=== PATIENT | female | born 1975 | race Caucasian/White ===

== ENCOUNTER 2021-01-31 00:58 | Day surgery (SDC) | payer OTHER, SELFPAY ==
[2021-01-28 09:46] VITALS: BMI 34.1
--- NOTE | 2021-01-30 14:23 | WPDANESEPPF ---
Anes - Initial Pre Proc Eval Procedure: Operation Date: 01/31/21 10:30 Proposed Procedures p Arthroscopic Rotator Cuff Repair Right Shoulder - Bartolome Simmons MD Date/Time: 01/30/21 14:23 Surgeon: Bartolome Simmons MD Pre Op Diagnosis: Complete rotator cuff tear Patient Data Age: 45 Gender: F Height: 1.65 m Weight: 93 kg Allergies Allergy/AdvReac Type Severity Reaction Status Date / Time caffeine Allergy Intermediate TACHYCARDIA; Verified 01/28/21 09:45 SOB dog dander Allergy Mild Dyspnea / Verified 01/28/21 09:45 SOB hydrocodone Allergy Mild Dyspnea / Verified 01/28/21 09:45 SOB pollen extracts Allergy Mild Dyspnea / Verified 01/28/21 09:45 SOB scopolamine Allergy Mild HIVES/RASH Verified 01/28/21 09:45 gluten AdvReac Mild Unknown Verified 01/28/21 09:45 Home Medications Medication Instructions Recorded Confirmed Type albuterol sulfate 90 mcg/actuation 1 puff INHALATION Q4H PRN 12/17/20 01/28/21 History aerosol inhaler alprazolam 0.5 mg tablet 0.5 mg PO QHS PRN 12/17/20 01/28/21 History azelastine 137 mcg (0.1 %) nasal 1 spray INTRANASAL Q12H 12/17/20 01/28/21 History spray aerosol buspirone 5 mg tablet 5 mg PO BID 12/17/20 01/28/21 History cyclobenzaprine 10 mg tablet 10 mg PO TID 12/17/20 01/28/21 History diclofenac potassium 50 mg tablet 50 mg PO TID PRN 12/17/20 01/28/21 History diphenhydramine 25 1 tablet PO QHS PRN 12/17/20 01/28/21 History mg-acetaminophen 500 mg tablet levocetirizine 5 mg tablet 5 mg PO DAILY 12/17/20 01/28/21 History melatonin 10 mg capsule 10 mg PO QHS 12/17/20 01/28/21 History montelukast 10 mg tablet 10 mg PO DAILY 12/17/20 01/28/21 History omeprazole 40 mg capsule,delayed 40 mg PO DAILY 12/17/20 01/28/21 History release ondansetron 4 mg disintegrating 4 mg PO Q8H 12/17/20 01/28/21 History tablet sumatriptan succinate 50 mg tablet See Rx Instructions PO .COMPLEX 12/17/20 01/28/21 History topiramate 100 mg tablet 100 mg PO BID 12/17/20 01/28/21 History valacyclovir 1 gram tablet 1,000 mg PO DAILY 12/17/20 01/28/21 History Patient hx anesthesia problems: post op nausea/vomiting Family hx anesthesia problems: none PMFSH Past Medical History Medical History (Updated 01/30/21 @ 14:25 by Ross Patel DO) Asthma Deafness in right ear Eosinophilic esophagitis Panic attack PONV (postoperative nausea and vomiting) Surgical History Surgical History H/O lymph node excision (~2011) rt. groin History of carpal tunnel surgery of right wrist (~2017) rt elbow debridement History of ear surgery (~1992) rt ear Reconstruction History of removal of cyst (~1995) rt hand History of tonsillectomy (~1987) Family History Family History Unknown CHF (congestive heart failure) Hepatic steatosis Hypertension Breast cancer Cerebrovascular accident Other Diabetes mellitus Family history of arthritis Family history of cardiovascular disease Social History Social History Smoking status: Never smoker Second hand tobacco smoke exposure: No Alcohol intake: never Substance use: current Substance use type: does not use and marijuana Last use: 01/25/21 Living arrangements: with family Gender identity (if verbalized by the patient): Female Sexual Orientation (if Verbalized by the Patient): Straight or Heterosexual Spiritual care concerns: No Anes - Eval Final PreProcedure Day of Procedure 01/30/21 14:23 Patient weight: obese Heart: regular rate and rhythm Lungs: clear to auscultation and normal air movement Airway: Mallampati scale class II Neurological: alert and oriented Last oral intake: >/= 8 hours ASA classification: III Emergent: no Anesthetic plan: proceed Anesthesia type and monitoring: general ETT and standard monitoring Inf
[2021-01-31] VITALS (9 sets, daily range): BP systolic 113–134; BP diastolic 60–94; PULSE 66–85; RESP 16–21; TEMP 36.1–36.2; O2SAT 97–100
--- NOTE | 2021-01-31 08:33 | WPDANESPNB ---
Anes - Peripheral Nerve Block Date/Time: 01/31/21 08:33 I have discussed with the patient/family/POA the placement of a peripheral nerve block for post-operative pain management, including associated risks, benefits, complications, and side effects. Alternative methods of post-operative analgesia were detailed. Questions were solicited and answers provided to the satisfaction of the patient/family/POA. Time-Out: A pre-procedural Time-Out was completed immediately before starting the procedure and confirmed: Patient Identification, Site, Procedure, Patient Position and the Availability of Requisite Equipment. Clinical Indications: Acute post-operative pain management requested by the operative surgeon. Nerve Block Insertion Note Anes-nerve block: interscalene right Patient position: supine Skin prep: chlorhexidine Needle: 22 gauge, stimulating, insulated echogenic needle. Needle length: 50 mm Technique: ultrasound Injectate: bupivacaine 0.5% with epi 5 mcg/ml (30cc- no epi) Observations: tolerated well Complications: none Procedure start time:: 1018 Procedure end time:: 1021
[2021-01-31] MEDS: ACETAMINOPHEN 500 MG TABLET 1000 MG PO (09:02)
[2021-01-31] MEDS: LACTATED RINGERS 1,000 ML 30 ML IV CONT ×2 (09:19→13:16)
[2021-01-31] MEDS: KETOROLAC 15 MG/ML VIAL (*BKC) IV PUSH ×2 (09:20→15:12)
[2021-01-31] MEDS: FAMOTIDINE 20 MG/2 ML VIAL IV PUSH (09:34)
--- NOTE | 2021-01-31 09:58 | WPDHPUPDATE1 ---
History and Physical Update Update Date/Time: 01/31/21 09:58 History and Physical has been reviewed, including an updated exam of the patient. There are NO changes in the patient's condition. Risks, benefits, and alternatives have been discussed and questions answered. Patient agrees to proceed with procedure.
[2021-01-31] MEDS: ceFAZolin 2 GM/D5W 50 ML 2 GM/50 ML BAG IVPB (10:32)
--- NOTE | 2021-01-31 14:32 | P.OP_ITS ---
Procedure Note - Detailed Date of Procedure 01/31/21 Pre-op Diagnosis Complete rotator cuff tear, right shoulder Post-op Diagnosis other (1. Right rotator cuff tear 2. Subacromial impingement) Procedure Performed 1. Arthroscopic rotator cuff repair 2. Arthroscopic subacromial decompression Surgeon Bartolome Simmons MD Emergency Medicine Nurse Practitioner Katherine Garza PA-C Anesthesia general and regional ( interscalene block) Findings Small complete bursal side tear and mid grade articular sided tear. Description of Procedure Physician assistant store director, Katherine Garza PA-C, required for surgery; including patient positioning, draping, arthroscopic camera operation, maintaining instrument position, suture retrieval, wound closure, and dressing and sling placement. Preoperative antibiotics were given. An interscalene block was administered in the preoperative area. The patient was bought brought to the operating room. A general anesthetic was administered. The patient was carefully positioned in the lateral decubitus position. The head and neck were carefully positioned. The non operative extremity was also carefully positioned. The shoulder was prepped and draped in the usual sterile fashion. Examination was performed. Standard posterior and anterior arthroscopic portals were established. Inflow achieved with the arthroscopic pump using saline and epinephrine. The glenohumeral joint was carefully inspected. Articular cartilage was normal. The supraspinatus showed mid to high grade articular side tearing. There was a small rent completing the tear more posteriorly at the defect. There was delamination of the articular flap of tissue. The tissue itself was of excellent quality. The subscapularis was normal. There was a Modena complex. The biceps and labrum were otherwise normal. The posterior cuff and axillary recess were normal. Attention was turned to the subacromial space. A complete bursectomy was performed. A modest acromioplasty was performed. The tear configuration was carefully assessed. It was elected to perform an in situ repair. Due to the completed small defect it was amenable to placing a bone tunnel using the ArthroTunneler device. The location of the tunnel was confirmed by viewing both the articular side and bursal side. A 3 spinal needles were used to momin the cuff. Again the articular view was used to confirm the appropriate placement of the spinal needle through the articular tendon. Subtle adjustments were made and a nice spread configuration was confirmed. Suture shuttles were passed through the spinal needles and out the anterior portal. Sequentially the sutures from the bone tunnel were shuttled back out through the tendon. The sutures were tied arthroscopically. Final viewing of the articular side confirmed that the repair was anatomic. The arthroscopic instruments were removed. The wounds were closed with 3-0 Monocryl subcuticular suture and steri strips. There were no complications. A sling was applied and the patient brought to the recovery room. Estimated Blood Loss 10 Urine Output 300 Pathology none sent Complications No immediate complications Condition stable Disposition PACU
--- NOTE | 2021-01-31 15:20 | SUR.PHASEII ---
DR. LOBATO HERE TO SEE PT.
--- NOTE | 2021-01-31 15:20 | SUR.PHASEII ---
DR. LOBATO'S OFFICE CALLED PER PATIENT REQUEST RE: ICE MACHINE. OFFICE STATED THEY WILL CALL THE REP AND CALL US BACK.
--- NOTE | 2021-01-31 15:56 | SUR.PHASEII ---
ICE MACHINE REP REACHED PT'S AND COORDINATED A MEETING TO GET IT.
== END 2021-01-31 15:56 | disposition home or self-care (01) ==
PROVIDERS: PCP Family Medicine; Visit Provider Orthopaedic Surgery
PROC: (CPT 29805; principal; 2021-01-31 10:30)
DX: M75.121 Complete rotator cuff tear or rupture of right shoulder, not specified as traumatic (principal); M75.41 Impingement syndrome of right shoulder; G89.18 Other acute postprocedural pain; J45.909 Unspecified asthma, uncomplicated; Z79.51 Long term (current) use of inhaled steroids; F41.0 Panic disorder [episodic paroxysmal anxiety]; E66.9 Obesity, unspecified; Z68.34 Body mass index [BMI] 34.0-34.9, adult
CPT/HCPCS: 64415; 29827; 29826; A4565; A9270; J0690; J1100; J1200; J1885; J2405; J2704; J3010; J7120

== ENCOUNTER 2021-07-03 08:45 | Outpatient (CLI) | payer OTHER, SELFPAY ==
--- NOTE | ~2021-07-03 | US_ITS ---
EXAMINATION: US pelvic complete w TV DATE: 07/03/2021 10:06 INDICATION: Uterine fibroid Comparison:No prior studies for comparison. TECHNIQUE: Multiple endovaginal sonographic images of the pelvis performed. FINDINGS: The uterus measures 8 x 4.3 x 4.5 cm. There is a fibroid measuring 1.8 x 1.7 x 1.2 cm. The endometrial complex measures 4 mm. The right ovary measures 2.5 x 1.5 x 1.7 cm and the left ovary measures 3.8 x 2.1 x 1.7 cm. There ar e small follicles in each ovary. Normal doppler signal in both ovaries. There is no free fluid in the pelvis. There are no abnormal masses seen on either side. IMPRESSION: 1. Uterine fibroid measuring 1.8 cm maximum dimension. Reviewed, dictated and finalized at location A. [employer]
== END 2021-07-03 08:46 | disposition home or self-care (01) ==
LOC: ANHIMG 08:47
PROVIDERS: Visit Provider Obstetrics & Gynecology Gynecology
DX: D25.9 Leiomyoma of uterus, unspecified (principal); M54.9 Dorsalgia, unspecified; M54.2 Cervicalgia
CPT/HCPCS: 76830; 76856

== ENCOUNTER 2023-05-21 01:11 | Day surgery (SDC) | payer OTHER, SELFPAY ==
[2023-05-17 15:41] VITALS: BMI 32.3
--- NOTE | 2023-05-17 15:49 | PC.NURSE ---
Report to the Outpatient Waiting Room, entrance under the green pavilion located off [facility], at time 9:30 on date 05/21/23. Planned Procedure Time: 11:30. Time changes happen often and if your time is changed the preop area will call you the afternoon before. - You and your visitor will be asked to self-screen and do not enter if you have any COVID symptoms. - A mask is optional within the hospital at this time. Patients may have clear liquids (water, carbonated beverages, clear teas, apple juice) until 3 hours prior to surgery (8:30) with a maximum of 20 ounces. - No food from midnight until time of surgery Take the following medications with a SIP of water the morning of surgery: INHALER IF NEEDED, ALPRAZOLAM, BUSPIRONE, DULOXETINE, TOPIRAMATE, VALACYCLOVIR IF NEEDED DO NOT STOP ANY OF YOUR OTHER PRESCRIPTION MEDICATIONS PRIOR TO SURGERY ?EXCEPT THE FOLLOWING Medications to discontinue per physician: VITAMINS/SUPPLEMENTS Date to take last dose: 05/17/23 Please no make-up, nail filipino, hairspray, perfume, deodorant, or body powder the day of surgery. No jewelry (including any body piercings) or valuables the day of surgery, leave them at home. Please take a shower or bath the night before, or the morning of, surgery with an antibacterial soap. Wear comfortable, loose fitting clothing. - Jewelry must be removed prior to entering the operating room. Rings and piercings that are not removed may be cut off. - The hospital will not accept responsibility for valuables. - Please leave all valuables, including medications, at home the day of surgery. If you are going home after surgery, a licensed electric train driver must drive you home. - NO public transportation without another adult if you receive anesthesia. - We recommend that an adult stay with you for 24 hours following discharge. - We also recommend that you do not drive, make important decision, drink alcoholic beverages, or take any drugs that were not prescribed by your health care provider for at least 24 hours after your discharge time. Follow any additional instructions given to you from your surgeon. If you or anyone in your household have experienced Covid symptoms in the past week, please notify your surgeon or the nurse liaison at the phone number below for possible testing. Telephone instructions given to PT - [facility] and asked if any additional questions and then verbalized understanding. Patient advised to call surgeon office or pre surgery nurse liaison [phone] if any additional questions.
--- NOTE | 2023-05-18 16:17 | PM.IMHP ---
H&P: HPI History of Present Illness Date/Time: 05/18/23 16:17 Chief Complaint: Pelvic pain/dyspareunia/enlarged uterus/uterine prolapse Narrative: Self [age]-year-old 2 para 2 admitted for robotic hysterectomy and bilateral salpingectomy secondary to pelvic pain and discomfort. She has enlarged uterus and a second-degree prolapse. The uterus was floppy unchanged such during her ultrasound. She has severe pain dyspareunia and would like to have that taken care of. She is under feet and refused hormonal disc manipulation. Risks and benefits of this procedure reviewed including but not exclusive of , aspiration 1, bleeding she had, transfusion, perforation injury to bowel, bladder, ureters, or other internal organs with the need for open laparotomy. She received the ACOG handout entitled hysterectomy as well as the de Cj handout. She had all questions answered and asked to proceed PMFSH Past Medical History Medical History Asthma Deafness in right ear Eosinophilic esophagitis Panic attack PONV (postoperative nausea and vomiting) Surgical History Surgical History H/O lymph node excision (~2011) rt. groin History of carpal tunnel surgery of right wrist (~2017) rt elbow debridement History of ear surgery (~1992) rt ear Reconstruction History of removal of cyst (~1995) rt hand History of repair of right rotator cuff (~01/31/21) History of tonsillectomy (~1987) Family History Family History Unknown CHF (congestive heart failure) Hepatic steatosis Hypertension Breast cancer Cerebrovascular accident Other Diabetes mellitus Family history of arthritis Family history of cardiovascular disease Social History Social History Smoking status: Current every day smoker Tobacco type: cigarettes and e-cigarettes/vaping Second hand tobacco smoke exposure: No Additional smoking assessment comments: QUIT CIGARETTES 2001 (SOCIAL SMOKER ONLY), NOW VAPING CBD Alcohol intake: current Alcohol use details: 2/MONTH Substance use: current Substance use type: does not use and marijuana Other substance usage details: CBD Last use: 01/25/21 Living arrangements: with family Gender identity (if verbalized by the patient): Female Sexual Orientation (if Verbalized by the Patient): Straight or Heterosexual Spiritual care concerns: No Meds Home Medications and Allergies Home Medications Medication Instructions Recorded Confirmed Type albuterol sulfate 90 mcg/actuation 1 puff inhalation Q4H PRN SOB 12/17/20 05/17/23 History aerosol inhaler (ProAir HFA) alprazolam 0.5 mg tablet 0.5 mg PO QHS PRN Anxiety 12/17/20 05/17/23 History buspirone 5 mg tablet 5 mg PO BID 12/17/20 05/17/23 History diphenhydramine 25 1 tablet PO QHS PRN Pain 12/17/20 05/17/23 History mg-acetaminophen 500 mg tablet (Tylenol PM Extra Strength) levocetirizine 5 mg tablet 5 mg PO DAILY 12/17/20 05/17/23 History (Allergy Relief (levocetirizine)) melatonin 10 mg capsule 10 mg PO QHS 12/17/20 05/17/23 History montelukast 10 mg tablet 10 mg PO DAILY 12/17/20 05/17/23 History omeprazole 40 mg capsule,delayed 40 mg PO DAILY 12/17/20 05/17/23 History release ondansetron 4 mg disintegrating 4 mg PO Q8H 12/17/20 05/17/23 History tablet sumatriptan succinate 50 mg tablet See Rx Instructions PO .COMPLEX 12/17/20 05/17/23 History topiramate 100 mg tablet 100 mg PO BID 12/17/20 05/17/23 History valacyclovir 1 gram tablet 1,000 mg PO DAILY PRN Cold Sores 12/17/20 05/17/23 History celecoxib 200 mg capsule (Celebrex) 200 mg PO BID 05/17/23 05/17/23 History duloxetine 60 mg capsule,delayed 60 mg PO DAILY 05/17/23 05/17/23 History release lisinopril 10 mg tablet 10 mg PO BID 05/17/23
[2023-05-21] VITALS (9 sets, daily range): BP systolic 113–142; BP diastolic 67–80; PULSE 67–82; RESP 12–18; TEMP 36.1–36.6; O2SAT 95–100
--- NOTE | 2023-05-21 06:46 | WPDHPUPDATE1 ---
History and Physical Update Update Date/Time: 05/21/23 06:46 History and Physical has been reviewed, including an updated exam of the patient. There are NO changes in the patient's condition. Risks, benefits, and alternatives have been discussed and questions answered. Patient agrees to proceed with procedure.
[2023-05-21] MEDS: LACTATED RINGERS 1,000 ML 30 ML IV CONT ×2 (09:55→12:40)
[2023-05-21] MEDS: ACETAMINOPHEN 500 MG TABLET 1000 MG PO (10:00)
[2023-05-21] MEDS: KETOROLAC 15 MG/ML VIAL (*BKC) IV PUSH (10:00)
--- NOTE | 2023-05-21 10:24 | WPDANESEPPF ---
Anes - Initial Pre Proc Eval Procedure: Operation Date: 05/21/23 11:30 Proposed Procedures p Robotic Assisted Total Vaginal Hysterectomy with Bilateral Salpingectomy - Grey Florez MD Date/Time: 05/21/23 10:24 Surgeon: Grey Florez MD Pre Op Diagnosis: Pelvic Pain, Enlarged Uterus, Uterine Prolapse Patient Data Age: 47 Gender: F Height: 1.68 m Weight: 90.72 kg Allergies Allergy/AdvReac Type Severity Reaction Status Date / Time caffeine Allergy Intermediate SOB, nausea Verified 05/17/23 15:38 dog dander Allergy Mild Rash Verified 05/17/23 15:38 hydrocodone Allergy Mild Rash Verified 05/17/23 15:38 pollen extracts Allergy Mild Sneezing Verified 05/17/23 15:38 scopolamine Allergy Mild HIVES/RASH Verified 05/17/23 15:38 latex Allergy Swelling Verified 05/17/23 15:38 gluten AdvReac Mild Gastrointestinal Verified 05/17/23 15:38 Upset Home Medications Medication Instructions Recorded Confirmed Type albuterol sulfate 90 mcg/actuation 1 puff inhalation Q4H PRN SOB 12/17/20 05/17/23 History aerosol inhaler (ProAir HFA) alprazolam 0.5 mg tablet 0.5 mg PO QHS PRN Anxiety 12/17/20 05/17/23 History buspirone 5 mg tablet 5 mg PO BID 12/17/20 05/17/23 History diphenhydramine 25 1 tablet PO QHS PRN Pain 12/17/20 05/17/23 History mg-acetaminophen 500 mg tablet (Tylenol PM Extra Strength) levocetirizine 5 mg tablet 5 mg PO DAILY 12/17/20 05/17/23 History (Allergy Relief (levocetirizine)) melatonin 10 mg capsule 10 mg PO QHS 12/17/20 05/17/23 History montelukast 10 mg tablet 10 mg PO DAILY 12/17/20 05/17/23 History omeprazole 40 mg capsule,delayed 40 mg PO DAILY 12/17/20 05/17/23 History release ondansetron 4 mg disintegrating 4 mg PO Q8H 12/17/20 05/17/23 History tablet sumatriptan succinate 50 mg tablet See Rx Instructions PO .COMPLEX 12/17/20 05/17/23 History topiramate 100 mg tablet 100 mg PO BID 12/17/20 05/17/23 History valacyclovir 1 gram tablet 1,000 mg PO DAILY PRN Cold Sores 12/17/20 05/17/23 History celecoxib 200 mg capsule (Celebrex) 200 mg PO BID 05/17/23 05/17/23 History duloxetine 60 mg capsule,delayed 60 mg PO DAILY 05/17/23 05/17/23 History release lisinopril 10 mg tablet 10 mg PO BID 05/17/23 05/17/23 History oxycodone-acetaminophen 5 mg-325 1 tablet PO Q4H PRN pain #30 tabs 05/21/23 Rx mg tablet (Endocet) Patient hx anesthesia problems: post op nausea/vomiting Family hx anesthesia problems: none Results Review: All pre-operative results and documents have been reviewed as part of the pre-operative evaluation. [facility] Past Medical History Medical History Asthma Deafness in right ear Eosinophilic esophagitis Panic attack PONV (postoperative nausea and vomiting) Surgical History Surgical History H/O lymph node excision (~2011) rt. groin History of carpal tunnel surgery of right wrist (~2017) rt elbow debridement History of ear surgery (~1992) rt ear Reconstruction History of removal of cyst (~1995) rt hand History of repair of right rotator cuff (~01/31/21) History of tonsillectomy (~1987) Family History Family History Unknown CHF (congestive heart failure) Hepatic steatosis Hypertension Breast cancer Cerebrovascular accident Other Diabetes mellitus Family history of arthritis Family history of cardiovascular disease Social History Social History Smoking status: Current every day smoker Tobacco type: cigarettes and e-cigarettes/vaping Second hand tobacco smoke exposure: No Additional smoking assessment comments: QUIT CIGARETTES 2001 (SOCIAL SMOKER ONLY), NOW VAPING CBD Alcohol intake: current Alcohol use details: 2/MONTH Substance use: current Substance use type: does not use and m
[2023-05-21 10:29] LABS: Basophils Percent Auto 0.2 % (0.2-1.2); Eosinophils Absolute Auto 0.1 K/mm3 (0-0.3); Eosinophils Percent Auto 0.9 % (0-4.4); Hematocrit 37.4 % (37.0-47.0); Hemoglobin 11.5 g/dL (12.0-15.0); Immature Granulocyte Absolute 0.03 K/mm3 (0.00-0.031); Immature Granulocyte Percent A 0.3 % (0-0.5); Lymphocytes Absolute Auto 2.02 K/mm3 (0.9-3.2); Lymphocytes Percent Auto 22.6 % (18.3-44.2); Mean Corpuscular HGB Conc 30.7 g/dl (32-36); Mean Corpuscular Hemoglobin 24.8 pg (26-34); Mean Corpuscular Volume 80.6 fl (80-100); Monocytes Absolute Auto 0.7 K/mm3 (0.1-0.6); Monocytes Percent Auto 7.3 % (2.6-8.5); Neutrophils Absolute Auto 6.1 K/mm3 (1.3-6.7); Neutrophils Percent Auto 68.7 % (45.5-73.1); Platelet Count Result 326 k/mm3 (150-375); Red Blood Count 4.64 M/mm3 (4.2-5.4); Red Cell Distribution Width 15.8 % (11.5-14.5); White Blood Count 8.9 K/mm3 (4.5-10.0)
[2023-05-21] MEDS: MIDAZOLAM HCL (*CRX) 2 MG/2 ML VIAL IV PUSH (10:30)
[2023-05-21] MEDS: ceFAZolin 2 GM/D5W 50 ML 2 GM/50 ML BAG IVPB (11:09)
--- NOTE | 2023-05-21 12:21 | P.OP_ITS ---
Procedure Note - Detailed Date of Procedure 05/21/23 Pre-op Diagnosis Pelvic Pain, Enlarged Uterus, Uterine Prolapse Post-op Diagnosis Same Procedure Performed Robotic total vaginal hysterectomy and bilateral salpingectomy Surgeon Grey Florez MD Anesthesia General Indications 47-year-old female with severe pelvic pain and uterine prolapse Findings enlarged uterus 12 pelvic pain Description of Procedure patient was prepped draped in normal sterile fashion placed in dorsal lithotomy position. Under excellent general endotracheal anesthesia weighted speculum placed in posterior fornix vagina. Anterior lip of the cervix grasped with single-tooth tenaculum. Uterus sounded to 10cm. Serial dilatation with fragmented dilators performed followed by passage of the 10. YEHUDA and the 3. 0.5 cold cup. Next the 16 Telugu catheter was placed in the bladder and drained clear urine. The weighted speculum was removed and the gloves were changed. A supraumbilical incision made in the Veress needle passed in the abdomen. Abdomen filled with CO2 gas [id number]. The 8mm trocar advanced in the abdomen. Downside visualized no injury seen. . Patient placed in Trendelenburg to20? and right and left lateral quadrant incisions made. 8Mm trocars advanced under direct visualization assuring no injury. Right upper quadrant incision made the 8mm trocar advanced under direct visualization assuring no injury. The robot was docked. Attention was turned to the student financial services counselor. The left round ligament grasped, burned, cut. Anterior bladder flap was formed by sharply dissected peritoneum and reflecting the bladder caudally with the cervix and uterus to the opposite round ligament which was clamped, burned, cut. Next the left fallopian tube was sharply dissected away from the ovarian complex left the uterine origin. In similar fashion on the right, the right fallopian tube sharply dissected away from uterus and ovary and left attached to its uterine origin. The utero- ovarian ligament on the left was skeletonized to conserve the left ovary. This was clamped, burned, cut and brought to the level of previously cut round ligament. In similar fashion on the right utero-ovarian ligament was clamped, burned, cut and brought to the level of previously cut round ligament the os retaining right ovary. The cardinal broad ligaments on the left were skeletonized clamping burning cutting and bring these down the lateral edge of the uterus until the large uterine vessels could be seen on the left these were individually clamped, burned, cut. In similar fashion on the right cardinal broad ligaments were clamped, burned, cut brought down level of uterine vessels. Uterine vessels were then skeletonized and clamped individually burned and cut. Excellent blanching the uterus was seen the colpotomy incision was made in the cervix uterus and tubes removed through the vagina. The vagina was then closed with continuous running 0V lock from lateral edge to lateral edge. This was brought back to the midline. Irrigation undertaken to clear. The robot was undocked. The gas removed from the abdomen. The trocars removed and the incisions closed with 4 Monocryl and glue. The patient was awakened went recovery in satisfactory condition. All sponge, needle, instrument counts were correct. There were no immediate complications Estimated Blood Loss 25 Drains No Packing No Pathology Yes Complications No immediate complications Condition Stable Disposition PACU
--- NOTE | 2023-05-21 12:25 | PM.DS ---
DS: Admitting Diagnosis Discharge Date 05/22/2023 Admitting Diagnosis uterine prolapse /enlarged uterus/pelvic pain DS: Discharge Diagnosis Discharge Diagnosis (1) Uterine prolapse: Code(s): N81.4 - Uterovaginal prolapse, unspecified Status: Acute (2) Enlarged uterus: Code(s): N85.2 - Hypertrophy of uterus Status: Acute (3) Pelvic pain: Code(s): R10.2 - Pelvic and perineal pain Status: Acute (4) Dyspareunia: Status: Acute DS: Summary Hospital Course Reason for hospitalization: patient was admitted for robotic total vaginal hysterectomy and bilateral salpingectomy on 05/21/2023. Hospital Course: Patient had an unremarkable procedure on 05/21/2023 as described above. Her hospital course unremarkable. She remained afebrile. She was up, voiding without difficulty, ambulating, eating regular diet, in general without complaints. Time Spent with Patient Time attestation: Total time spent providing and/or coordinating discharge services: Exam Const: General: cooperative, healthy appearing and comfortable Nutritional Appearance: average body habitus Orientation/consciousness: oriented to person, oriented to place and oriented to time HENMT: Head: normal to inspection Resp: Effort & Inspection: normal respiratory effort Cardio: Rate: regular rate Rhythm: regular rhythm Heart sounds: S1 normal heart sound present and S2 normal heart sound present GI: Inspection: normal to inspection and incision ( Wounds are clean dry and intact) DS: Data Data Completed and Pending Pending studies at discharge: Pending at discharge 05/21/23 12:08 Surgical [PTH] Routine Labs on day of discharge: Labs from last 24 hours 05/21/23 10:19 WBC 8.9 RBC 4.64 Hgb 11.5 L Hct 37.4 MCV 80.6 MCH 24.8 L MCHC 30.7 L RDW 15.8 H Plt Count 326 MPV 10.0 Immature Gran % (Auto) 0.3 Neut % (Auto) 68.7 Lymph % (Auto) 22.6 [place] % (Auto) 7.3 Eos % (Auto) 0.9 Baso % (Auto) 0.2 Lymph # (Auto) 2.02 [place] # (Auto) 0.7 H Eos # (Auto) 0.1 Baso # (Auto) 0.0 Abs Immat Gran (auto) 0.03 Absolute Neuts (auto) 6.1 Absolute Nucleated RBC 0.0 Nucleated RBC % 0.0 Blood Type O Positive Antibody Screen Negative Discharge Plan Discharge Patient Disposition: Home, Self-Care Stand Alone Forms: General Discharge Instructions Follow-up/Referrals: Grey Ervin MD [Physician] - Discharge Medications: New oxycodone-acetaminophen [Endocet] 5-325 mg tablet 1 tablet PO Q4H PRN (Reason: pain) Qty: 30 0RF No Action topiramate 100 mg tablet 100 mg PO BID omeprazole 40 mg capsule,delayed release(DR/EC) 40 mg PO DAILY buspirone 5 mg tablet 5 mg PO BID montelukast 10 mg tablet 10 mg PO DAILY albuterol sulfate [ProAir HFA] 90 mcg/actuation HFA aerosol inhaler 1 puff inhalation Q4H PRN (Reason: SOB) Patient Comments: pt stated a couple months ondansetron 4 mg tablet,disintegrating 4 mg PO Q8H sumatriptan succinate 50 mg tablet See Rx Instructions PO .COMPLEX Rx Instructions: take 1 tab at onset of headache; if no relief may repeat 1 tab after at least 2 hrs; max = 4 tabs/24 hr PO levocetirizine [Allergy Relief (levocetirizin)] 5 mg tablet 5 mg PO DAILY valacyclovir 1 gram tablet 1,000 mg PO DAILY PRN (Reason: Cold Sores) alprazolam 0.5 mg tablet 0.5 mg PO QHS PRN (Reason: Anxiety) melatonin 10 mg capsule 10 mg PO QHS diphenhydramine-acetaminophen [Tylenol PM Extra Strength] 25-500 mg tablet 1 tablet PO QHS PRN (Reason: Pain) lisinopril 10 mg Tablet 10 mg PO BID duloxetine 60 mg Capsule,Delayed Release(Dr/Ec) 60 mg PO DAILY celecoxib [Celebrex] 200 mg Capsule 200 mg PO BID
[2023-05-21] MEDS: fentaNYL CITRATE INJ (*CRX) 100 MCG/2 ML VIAL 25 MCG IV PUSH ×4 (13:22→13:40)
--- NOTE | 2023-05-21 14:05 | PC.NURSE ---
This patient, Alejandra Caicedo, was received from PACU on 05/21/23 at 1405. Patient/family oriented to unit policies and routines
[2023-05-21] MEDS: KETOROLAC 30 MG/ML VIAL (*BKC) IV PUSH (14:34)
[2023-05-21] MEDS: DEXTROSE 5%/LACTATED RINGERS 1,000 ML 125 ML IV CONT (14:43)
[2023-05-21] MEDS: traMADol HCL (*CRX) 50 MG TABLET PO (17:26)
--- NOTE | 2023-05-21 17:40 | PC.NURSE ---
2903 Patient requested to have her hanna catheter removed, RN removed.
[2023-05-21] MEDS: SIMETHICONE 80 MG TAB.CHEW PO (19:33)
[2023-05-21] MEDS: oxyCODONE/ACETAMINOPHEN (*CRX) 5-325 MG TABLET PO (19:33)
[2023-05-22] VITALS: BP 122/76; PULSE 61; RESP 18; TEMP 36.7; O2SAT 99
[2023-05-22] MEDS: oxyCODONE/ACETAMINOPHEN (*CRX) 5-325 MG TABLET PO ×2 (03:48→08:41)
[2023-05-22] MEDS: IBUPROFEN 600 MG TABLET PO (03:49)
[2023-05-22 04:00] VITALS: BP 130/82; PULSE 60; RESP 18; TEMP 36.3; O2SAT 99
[2023-05-22 05:29] LABS: Basophils Percent Auto 0.2 % (0.2-1.2); Hematocrit 35.6 % (37.0-47.0); Hemoglobin 10.6 g/dL (12.0-15.0); Immature Granulocyte Absolute 0.04 K/mm3 (0.00-0.031); Immature Granulocyte Percent A 0.4 % (0-0.5); Lymphocytes Absolute Auto 1.61 K/mm3 (0.9-3.2); Lymphocytes Percent Auto 17.4 % (18.3-44.2); Mean Corpuscular HGB Conc 29.8 g/dl (32-36); Mean Corpuscular Hemoglobin 24.5 pg (26-34); Mean Corpuscular Volume 82.4 fl (80-100); Mean Platelet Volume 10.6 fl (7.4-10.4); Monocytes Absolute Auto 0.5 K/mm3 (0.1-0.6); Monocytes Percent Auto 5.5 % (2.6-8.5); Neutrophils Absolute Auto 7.1 K/mm3 (1.3-6.7); Neutrophils Percent Auto 76.5 % (45.5-73.1); Platelet Count Result 308 k/mm3 (150-375); Red Blood Count 4.32 M/mm3 (4.2-5.4); Red Cell Distribution Width 15.6 % (11.5-14.5); White Blood Count 9.3 K/mm3 (4.5-10.0)
--- NOTE | 2023-05-22 08:03 | PM.GYNPNOP ---
WARP CHANGER - A/P Assessment and plan (1) Uterine prolapse: Code(s): N81.4 - Uterovaginal prolapse, unspecified Status: Acute Assessment and Plan: A: POD#1, doing well. P: Home to f/u 2 weeks. (2) Enlarged uterus: Code(s): N85.2 - Hypertrophy of uterus Status: Acute (3) Pelvic pain: Code(s): R10.2 - Pelvic and perineal pain Status: Acute (4) Dyspareunia: Status: Acute Postoperative Procedures: Procedures Operation Date: 05/21/23 11:30 Actual Procedure Side Surgeon p Robotic Assisted Total Vaginal Hysterectomy with Bilateral Salpingectomy Bilateral Grey Florez MD Time Spent With Patient Time with patient: less than 15 minutes WARP CHANGER- PN:Subj Post-Op Subjective Date/time seen: 05/22/23 08:03 Interval history: Pain OK. Tolerating diet. Voiding. Would like to go home. Exam Narrative: AVSS I/O OK ABD soft, nontender. Incisions c/d/i. EXT nontender WARP CHANGER - PN: Obj Data Vital Signs Vital Signs: Vital Signs - 24 hr 05/21/23 10:00 05/21/23 12:40 05/21/23 12:55 Temperature 36.3 C L 36.3 C L Pulse Rate 68 76 68 Respiratory Rate 16 14 14 Blood Pressure 133/80 142/67 H 123/77 Pulse Oximetry 100 100 100 Oxygen Delivery Room Air Simple Face Mask Simple Face Mask Oxygen Flow Rate 6 6 05/21/23 13:07 05/21/23 13:10 05/21/23 13:25 Temperature Pulse Rate 68 71 Respiratory Rate 16 14 Blood Pressure 125/76 126/72 Pulse Oximetry 99 95 Oxygen Delivery Room Air Room Air Room Air Oxygen Flow Rate 05/21/23 13:40 05/21/23 13:55 05/21/23 14:30 Temperature 36.6 C 36.1 C L Pulse Rate 71 82 67 Respiratory Rate 12 12 16 Blood Pressure 121/71 113/75 123/70 Pulse Oximetry 95 95 100 Oxygen Delivery Room Air Room Air Oxygen Flow Rate 05/21/23 20:00 05/22/23 00:00 05/22/23 04:00 Temperature 36.4 C L 36.7 C 36.3 C L Pulse Rate 71 61 60 Respiratory Rate 18 18 18 Blood Pressure 119/77 122/76 130/82 Pulse Oximetry 97 99 99 Oxygen Delivery Oxygen Flow Rate Intake/Output Intake/Output: Intake & Output 05/19/23 05/20/23 05/21/23 05/22/23 23:59 23:59 23:59 23:59 Intake Total 1509 Output Total 1240 600 Balance 269 -600 Meds/Results Medications: Active Medications Generic Name Dose Route Start Last Admin Trade Name Freq PRN Reason Stop Dose Admin Docusate Sodium 100 mg 05/21/23 17:00 05/22/23 06:28 Docusate Sodium 100 Mg Capsule PO Not Given BID [facility] Enoxaparin Sodium 40 mg 05/22/23 09:00 Enoxaparin 40 Mg/0.4 Ml Syringe SUB-Q DAILY [facility] Ibuprofen 600 mg 05/21/23 13:59 05/22/23 03:49 Ibuprofen 600 Mg Tablet PO 600 mg Q6H PRN Administration Cramping Ketorolac Tromethamine 30 mg 05/21/23 13:59 05/21/23 14:34 Ketorolac 30 Mg/Ml Vial (*Bkc) IV PUSH 05/26/23 13:58 30 mg Q6H PRN Administration Pain Rated 4-6 Naloxone HCl 0.1 mg 05/21/23 13:59 Naloxone Hcl 0.4 Mg/Ml Vial IV PUSH Q2M PRN Respiratory rate less than 10 Ondansetron HCl 4 mg 05/21/23 13:59 Ondansetron Inj 4 Mg/2 Ml Vial IV PUSH Q6H PRN Nausea And Vomiting Oxycodone/Acetaminophen 1 - 2 tablet 05/21/23 19:16 05/22/23 03:48 Oxycodone/Acetaminophen (*Crx) 5-325 Mg Tablet PO 1 tablet Q4H PRN Administration Pain Rated 7-10 Simethicone 80 mg 05/21/23 13:59 05/21/23 19:33 Simethicone 80 Mg Tab.Chew PO 80 mg Q2H PRN Administration Gas Labs 05/22/23 03:54 Labs: Laboratory Results - last 24 hr 05/21/23 05/22/23 10:19 03:54 WBC 8.9 9.3 RBC 4.64 4.32 Hgb 11.5 L 10.6 L Hct 37.4 35.6 L MCV 80.6 82.4 MCH 24.8 L 24.5 L MCHC 30.7 L 29.8 L RDW 15.8 H 15.6 H Plt Count 326 308 MPV 10.0 10.6 H Immature Gran % (Auto) 0.3 0.4 Neut % (Auto) 68.7 76.5 H Lymph % (Auto) 22.6 17.4 L [place] % (Auto) 7.3 5.5 Eos % (Auto) 0.9 0.0 Baso % (Auto) 0.2 0.2 Lymph # (Auto) 2.02 1.61
--- NOTE | 2023-05-22 08:04 | PM.DS ---
DS: Admitting Diagnosis Discharge Date 05/22/23 Admitting Diagnosis Pelvic pain, dyspareunia, uterine prolapse, enarged uterus DS: Discharge Diagnosis Discharge Diagnosis (1) Uterine prolapse: Code(s): N81.4 - Uterovaginal prolapse, unspecified Status: Acute (2) Enlarged uterus: Code(s): N85.2 - Hypertrophy of uterus Status: Acute (3) Pelvic pain: Code(s): R10.2 - Pelvic and perineal pain Status: Acute (4) Dyspareunia: Status: Acute DS: Summary Hospital Course Hospital Course: Admitted for scheduled surgery. Did well and was able to go home POD1. Time Spent with Patient Time attestation: Total time spent providing and/or coordinating discharge services: DS: Data Data Completed and Pending Pending studies at discharge: Pending at discharge 05/21/23 12:08 Surgical [PTH] Routine Labs on day of discharge: Labs from last 24 hours 05/22/23 05/21/23 03:54 10:19 WBC 9.3 8.9 RBC 4.32 4.64 Hgb 10.6 L 11.5 L Hct 35.6 L 37.4 MCV 82.4 80.6 MCH 24.5 L 24.8 L MCHC 29.8 L 30.7 L RDW 15.6 H 15.8 H Plt Count 308 326 MPV 10.6 H 10.0 Immature Gran % (Auto) 0.4 0.3 Neut % (Auto) 76.5 H 68.7 Lymph % (Auto) 17.4 L 22.6 [place] % (Auto) 5.5 7.3 Eos % (Auto) 0.0 0.9 Baso % (Auto) 0.2 0.2 Lymph # (Auto) 1.61 2.02 [place] # (Auto) 0.5 0.7 H Eos # (Auto) 0.0 0.1 Baso # (Auto) 0.0 0.0 Abs Immat Gran (auto) 0.04 H 0.03 Absolute Neuts (auto) 7.1 H 6.1 Absolute Nucleated RBC 0.0 0.0 Nucleated RBC % 0.0 0.0 Blood Type O Positive Antibody Screen Negative Discharge Plan Discharge Patient Disposition: Home, Self-Care Discharge Instructions: Nothing in the vagina for 6 weeks. Call or return if temperature above 100.4? F, increased abdominal pain, increased vaginal bleeding or any new problems. Stand Alone Forms: General Discharge Instructions Follow-up/Referrals: Grey Ervin MD [Physician] - 2 Weeks Discharge Medications: New oxycodone-acetaminophen [Endocet] 5-325 mg tablet 1 tablet PO Q4H PRN (Reason: pain) Qty: 30 0RF Continued topiramate 100 mg tablet 100 mg PO BID omeprazole 40 mg capsule,delayed release(DR/EC) 40 mg PO DAILY buspirone 5 mg tablet 5 mg PO BID montelukast 10 mg tablet 10 mg PO DAILY albuterol sulfate [ProAir HFA] 90 mcg/actuation HFA aerosol inhaler 1 puff inhalation Q4H PRN (Reason: SOB) Patient Comments: pt stated a couple months ondansetron 4 mg tablet,disintegrating 4 mg PO Q8H sumatriptan succinate 50 mg tablet See Rx Instructions PO .COMPLEX Rx Instructions: take 1 tab at onset of headache; if no relief may repeat 1 tab after at least 2 hrs; max = 4 tabs/24 hr PO levocetirizine [Allergy Relief (levocetirizin)] 5 mg tablet 5 mg PO DAILY valacyclovir 1 gram tablet 1,000 mg PO DAILY PRN (Reason: Cold Sores) alprazolam 0.5 mg tablet 0.5 mg PO QHS PRN (Reason: Anxiety) melatonin 10 mg capsule 10 mg PO QHS diphenhydramine-acetaminophen [Tylenol PM Extra Strength] 25-500 mg tablet 1 tablet PO QHS PRN (Reason: Pain) lisinopril 10 mg Tablet 10 mg PO BID duloxetine 60 mg Capsule,Delayed Release(Dr/Ec) 60 mg PO DAILY celecoxib [Celebrex] 200 mg Capsule 200 mg PO BID
[2023-05-22] MEDS: DOCUSATE SODIUM 100 MG CAPSULE PO (08:41)
[2023-05-22] MEDS: ENOXAPARIN 40 MG/0.4 ML SYRINGE SUB-Q (08:42)
[2023-05-22 08:45] VITALS: BP 125/85; PULSE 74; RESP 16; TEMP 37; O2SAT 98
== END 2023-05-22 09:55 | disposition home or self-care (01) ==
LOC: ANHSURGERY 09:32 → ANHOB2 14:21
PROVIDERS: PCP Family Medicine; Visit Provider Obstetrics & Gynecology
PROC: (CPT 58552; principal; 2023-05-21 11:30)
DX: N81.4 Uterovaginal prolapse, unspecified (principal); N80.03 Adenomyosis of the uterus; N88.8 Other specified noninflammatory disorders of cervix uteri; J45.909 Unspecified asthma, uncomplicated; F17.290 Nicotine dependence, other tobacco product, uncomplicated; Z79.51 Long term (current) use of inhaled steroids; Z79.891 Long term (current) use of opiate analgesic; Z80.3 Family history of malignant neoplasm of breast; Z82.49 Family history of ischemic heart disease and other diseases of the circulatory system
CPT/HCPCS: 58552; S2900; 36415; 85025; 86850; 86900; 86901; 88307; 99199; A9270; J0690; J1100; J1170; J1200; J1650; J1885; J2250; J2405; J2704; J3010; J7030; J7120; J7121